=== PATIENT | male | born 1940 | race Hispanic/Latino ===

== ENCOUNTER 2018-01-30 18:39 | Emergency (ER) | payer MEDICARE ==
[2018-01-30 19:25] LABS: Basophils # (Auto) 0.1 K/mm3 (0.0-0.1); Basophils % (Auto) 0.8 % (0.0-1.8); Eosinophils # (Auto) 0.2 K/mm3 (0.0-0.4); Eosinophils % (Auto) 2.8 % (0.0-4.3); Hemoglobin 14.4 gm/dl (11.8-15.2); Lymphocytes # (Auto) 3.2 K/mm3 (1.2-5.4); Mean Corpuscular HGB Conc 34 % (32-34); Mean Corpuscular Hemoglobin 31 pg (28-32); Mean Corpuscular Volume 90 fl (84-94); Monocytes # (Auto) 1.1 K/mm3 (0.0-0.8); Monocytes % (Auto) 14.9 % (0.0-7.3); Platelet Count 235 K/mm3 (140-440); Red Blood Count 4.68 M/mm3 (3.65-5.03); Red Cell Distribution Width 13.2 % (13.2-15.2)
[2018-01-30 19:41] LABS: BUN/Creatinine Ratio 13; Blood Urea Nitrogen 15 mg/dL (9-20); Calcium 9.5 mg/dL (8.4-10.2); Hemolysis Index 5
--- NOTE | 2018-01-30 20:23 | Emergency Department Report ---
ED General Adult HPI - General Chief complaint: High BP Stated complaint: HIGH BP Time Seen by Provider: 01/30/18 20:07 Source: patient Mode of arrival: Ambulatory Limitations: No Limitations - History of Present Illness Initial comments: Mr. Martin is a very pleasant 77-year-old male with history of COPD hypertension, GERD, CAD. His formal PCP is Dr. Valerio. His cardiology group is [facility]. He presents with elevated blood pressure. He stated that his blood pressure was systolic was 120 this morning. He took Diovan 80 mg his normal morning dose. He took extra dose of Diovan 80 mg this evening due to elevated blood pressure. His systolic was 173. Today he felt mildly ill. He has scotoma. He had lightheadedness. He denies headache. Denies chest pain. Denies syncope. Denies stroke symptoms. Retired lives with a female partner. His son and [id number] or bedside. - Related Data Allergies Allergy/AdvReac Type Severity Reaction Status Date / Time Iodinated Contrast- Oral and Allergy Unknown Verified 01/30/18 18:49 IV Dye ED Review of Systems ROS: Stated complaint: HIGH BP Other details as noted in HPI Comment: All other systems reviewed and negative Constitutional: malaise. denies: fever Respiratory: denies: cough Cardiovascular: denies: chest pain Gastrointestinal: denies: abdominal pain Musculoskeletal: denies: back pain ED Past Medical Hx - Past Medical History Previous Medical History?: Yes Hx Hypertension: Yes Hx Heart Attack/AMI: Yes Hx GERD: Yes Hx Arthritis: Yes Hx COPD: Yes Additional medical history: Diff swallowing - Surgical History Past Surgical History?: Yes Additional Surgical History: Colonoscopy with polyps removed, Heart cath, EGD - Social History Smoking Status: Former Smoker Substance Use Type: Alcohol, Prescribed ED Physical Exam - General Limitations: No Limitations General appearance: alert, in no apparent distress - Head Head exam: Present: atraumatic, normocephalic - Eye Eye exam: Present: normal appearance - ENT ENT exam: Present: mucous membranes moist - Neck Neck exam: Present: normal inspection - Respiratory Respiratory exam: Present: normal lung sounds bilaterally. Absent: respiratory distress, wheezes, rales, rhonchi - Cardiovascular Cardiovascular Exam: Present: regular rate, normal rhythm, normal heart sounds. Absent: bradycardia, tachycardia, systolic murmur, diastolic murmur, rubs, gallop - GI/Abdominal GI/Abdominal exam: Present: soft, normal bowel sounds. Absent: distended, guarding, rebound - Rectal Rectal exam: Present: deferred - Extremities Exam Extremities exam: Present: normal inspection - Back Exam Back exam: Present: normal inspection - Neurological Exam Neurological exam: Present: alert, oriented X3, CN II-XII intact, normal gait. Absent: motor sensory deficit - Psychiatric Psychiatric exam: Present: normal affect, normal mood - Skin Skin exam: Present: warm, dry, intact, normal color. Absent: rash ED Course Vital Signs 01/30/18 01/30/18 01/30/18 18:50 20:00 20:01 Temperature 98.1 F 97.9 F Pulse Rate 84 85 80 Respiratory 20 14 14 Rate Blood Pressure 197/100 178/100 Blood Pressure 192/95 [Left] O2 Sat by Pulse 97 98 98 Oximetry 01/30/18 01/30/18 01/30/18 20:30 20:35 21:00 Temperature Pulse Rate 78 74 75 Respiratory 11 L 16 Rate Blood Pressure 168/102 160/92 156/88 Blood Pressure [Left] O2 Sat by Pulse 98 97 Oximetry 01/30/18 21:30 Temperature Pulse Rate 73 Respiratory 20 Rate Blood Pressure 158/90 Blood Pressure [Left] O2 Sat by Pulse 97 Oximetry ED Medical Decision Making - Lab Data Result diagrams: 01/30/18 19:04 01/30/18 19:04 Vital Signs - 24 hr 01/30/18 01/30/18 18:50 20:01 Temperature 98.1 F 97.9 F Pulse Rate 84 80 Respiratory 20 14 Rate Blood Pressure 197/100 Blood Pressure 192/95 [Left] O2 Sat by Pulse 97 98 Oximetry Laboratory Results - last 24 hr 01/30/18 01/30/18 19:04 19:04 WBC 7.5 RBC 4.68 Hgb 14.4 Hct 42.0 MCV 90 MCH 31 MCHC 34 RDW 13.2 Plt Count 235 Lymph % (Auto) 42.0 H [place] % (Auto) 14.9 H Eos % (Auto) 2.8 Baso % (Auto) 0.8 Lymph # 3.2 [place] # 1.1 H Eos # 0.2 Baso # 0.1 Seg Neutrophils % 39.5 L Seg Neutrophils # 3.0 Sodium 137 Potassium 4.8 Chloride 100.8 Carbon Dioxide 25 Anion Gap 16 BUN 15 Creatinine 1.2 Estimated GFR 59 BUN/Creatinine Ratio 13 Glucose 95 Calcium 9.5 Troponin T < 0.010 Vital Signs - 24 hr 01/30/18 01/30/18 01/30/18 18:50 20:00 20:01 Temperature 98.1 F 97.9 F Pulse Rate 84 85 80 Respiratory 20 14 14 Rate Blood Pressure 197/100 178/100 Blood Pressure 192/95 [Left] O2 Sat by Pulse 97 98 98 Oximetry 01/30/18 01/30/18 01/30/18 20:30 20:35 21:00 Temperature Pulse Rate 78 74 75 Respiratory 11 L 16 Rate Blood Pressure 168/102 160/92 156/88 Blood Pressure [Left] O2 Sat by Pulse 98 97 Oximetry 01/30/18 21:30 Temperature Pulse Rate 73 Respiratory 20 Rate Blood Pressure 158/90 Blood Pressure [Left] O2 Sat by Pulse 97 Oximetry - EKG Data 01/30/18 20:24 EKG obtained 1901 Rate 80 beats a minute normal sinus rhythm left axis deviation no ST elevation no signs of ischemia poor R-wave progression in the anterior leads - Medical Decision Making Mr. Martin presents with hypertensive urgency, lightheadedness and scotoma. BP improved with oral labetalol. He is now symptom free. He admits that he is hesitant to take all his medications Diovan and Metoprolol at the same time. He had previously been on a higher dose of Diovan 120 mg and BID Metoprolol. He only now takes Diovan 80 mg once daily. He spoke with Mr. Martin extensively about the need to consistently take his BP medications. He is discharged in improved condition. Critical care attestation.: If time is entered above; I have spent that time in minutes in the direct care of this critically ill patient, excluding procedure time. ED Disposition Clinical Impression: Hypertensive urgency Disposition: DC-01 TO HOME OR SELFCARE Is pt being admited?: No Does the pt Need Aspirin: No Condition: Stable Instructions: Hypertension (ED) Referrals: NAHUN HANSEN MD [Primary Care Provider] - 3-5 Days Time of Disposition: 22:04
[2018-01-30] MEDS ORDERED: NORMODYNE PO ONE (20:25)
--- NOTE | 2018-01-30 21:21 | XRay Report ---
FINAL REPORT PROCEDURE: XR CHEST ROUTINE 2V TECHNIQUE: PA and lateral chest radiographs were obtained. CPT 92380 HISTORY: Shortness of breath COMPARISON: No prior studies are available for comparison. FINDINGS: Heart: Normal. Mediastinum/Vessels: Normal. Lungs/Pleural space: No infiltrate, effusion, or pneumothorax. Bony thorax: No acute osseous abnormality. Other: IMPRESSION: No pulmonary infiltrates are identified.
[2018-01-30 22:07] VITALS: BP 152/87
== END 2018-01-30 22:30 | disposition home or self-care (01) ==
LOC: ED 18:39
DX: I10 Essential (primary) hypertension (principal); J44.9 Chronic obstructive pulmonary disease, unspecified; K21.9 Gastro-esophageal reflux disease without esophagitis; Z87.891 Personal history of nicotine dependence
CPT/HCPCS: 36415; 71046; 80048; 84484; 85025; 93005; 93010; 99284